=== PATIENT | female | born 1985 | race Caucasian/White ===

== ENCOUNTER 2018-10-05 11:16 | Emergency (ER) | payer MEDICAID | END 2018-10-05 14:14 | disposition home or self-care (01) | LOC: FTE 11:16 | DX: O26.892 Other specified pregnancy related conditions, second trimester (principal); Z3A.28 28 weeks gestation of pregnancy | CPT/HCPCS: 99282; Z7502 ==

== ENCOUNTER 2018-12-19 14:00 | Outpatient (CLI) | payer MEDICAID ==
[2018-12-19] MEDS: LACTATED RINGER'S 1,000 ML IV (14:54)
[2018-12-19] MEDS: TERBUTALINE 1 MG/ML INJ SC (15:30)
[2018-12-19] MEDS: NIFEdipine 10 MG CAP PO (16:52)
[2018-12-19 17:27] LABS: ADD UMIC YES; UR ASCORBIC ACID NEGATIVE (NEGATIVE); UR BACTERIA FEW /HPF (NONE SEEN); UR BILIRUBIN (Dip) NEGATIVE (NEGATIVE); UR BLOOD (Dip) 1+ mg/dL (NEGATIVE); UR CLARITY CLOUDY (CLEAR); UR COLOR YELLOW (YELLOW); UR GLUCOSE (Dip) NEGATIVE (NEGATIVE); UR KETONES (Dip) NEGATIVE (NEGATIVE); UR LEUKOCYTE ESTERASE (Dip) 3+ Leu/ul (NEGATIVE); UR NITRITE (Dip) NEGATIVE (NEGATIVE); UR RBC 2 /HPF (0-5); UR SPECIFIC GRAVITY (Dip) 1.006 (1.003-1.030); UR SQUAMOUS EPITHELIAL CELL MANY /HPF (FEW); UR TOTAL PROTEIN (Dip) NEGATIVE (NEGATIVE); UR UROBILINOGEN (Dip) NEGATIVE (NEGATIVE); UR WBC 14 /HPF (0-5)
== END 2018-12-19 19:52 | disposition home or self-care (01) ==
LOC: OBT 14:00 → L-D 14:01 → OBT 19:52
DX: O26.892 Other specified pregnancy related conditions, second trimester (principal); R10.2 Pelvic and perineal pain; O09.523 Supervision of elderly multigravida, third trimester; Z3A.36 36 weeks gestation of pregnancy
CPT/HCPCS: 36415; 76818; 81001; 96360; 96361

== ENCOUNTER 2018-12-30 07:29 | Inpatient (IN) | payer MEDICAID ==
[2018-12-30] MEDS ORDERED: IBUPROFEN 600 MG TAB PO (08:00)
[2018-12-30] MEDS ORDERED: METHYLERGONOVINE 0.2 MG INJ IM ×2 (08:00→22:30)
[2018-12-30] MEDS ORDERED: CARBOPROST 250 MCG INJ IM ×2 (08:00→22:30)
[2018-12-30] MEDS ORDERED: OXYTOCIN 30 UNITS/LR 500 ML IV ×2 (08:00→22:30)
[2018-12-30] MEDS ORDERED: BUTORPHANOL 2 MG INJ IV (08:00)
[2018-12-30] MEDS ORDERED: LIDOCAINE 1% (MPF) 30 ML INJ INJ (08:00)
[2018-12-30] MEDS ORDERED: MISOPROSTOL 200 MCG TAB PR ×2 (08:00→22:30)
[2018-12-30] MEDS: LACTATED RINGER'S 1,000 ML IV ×3 (08:10→16:48)
[2018-12-30 08:23] LABS: ADD MAN DIFF? NO
[2018-12-30 08:29] LABS: WHITE BLOOD COUNT 8.3 10^3/ul (4.8-10.8)
[2018-12-30 08:29] LABS: BASOPHIL # 0.1 10^3/ul (0.0-0.1); EOSINOPHILS # 0.2 10^3/ul (0.0-0.5); EOSINOPHILS % 2.5 % (0.0-7.0); HEMATOCRIT 41.4 % (37.0-47.0); HEMOGLOBIN 14.1 g/dl (12.0-16.0); LYMPHOCYTES # 2.4 10^3/ul (0.8-2.9); LYMPHOCYTES % 28.4 % (15.0-51.0); MEAN CORPUSCULAR HEMOGLOBIN 30.3 pg (29.0-33.0); MEAN CORPUSCULAR HGB CONC 34.1 g/dl (32.0-37.0); MEAN PLATELET VOLUME 9.7 fl (7.4-10.4); MONOCYTE # 0.7 10^3/ul (0.3-0.9); MONOCYTES % 8.3 % (0.0-11.0); NEUTROPHIL # 4.9 10^3/ul (1.6-7.5); NEUTROPHILS % 58.7 % (39.0-77.0); PLATELET COUNT 203 10^3/UL (140-415); RED BLOOD COUNT 4.65 10^6/ul (4.20-5.40); RED CELL DISTRIBUTION WIDTH 13.2 % (11.5-14.5)
[2018-12-30] MEDS: AMPICILLIN 2 GM/NS (PMX) 100 ML IV (08:39)
[2018-12-30 08:49] LABS: INR 0.93; PROTIME 12.6 Sec (11.9-14.9)
[2018-12-30 08:50] LABS: PARTIAL THROMBOPLASTIN TIME 28.2 Sec (23.0-35.0)
[2018-12-30] MEDS ORDERED: FENTAnyl 2MCG/ML-ROPIV 0.2% 100 ML (09:59)
[2018-12-30] MEDS ORDERED: ONDANSETRON 4 MG INJ IV (10:30)
[2018-12-30] MEDS ORDERED: morphine 2 MG INJ IV ×2 (10:30)
[2018-12-30] MEDS ORDERED: DIPHENHYDRAMINE 50 MG INJ IV (10:30)
[2018-12-30] MEDS ORDERED: KETOROLAC 30 MG INJ IV (10:30)
[2018-12-30] MEDS ORDERED: HYDROmorphONE 0.5 MG/0.5 ML SYG IV ×2 (10:30)
[2018-12-30] MEDS ORDERED: NALBUPHINE HCL (10 MG/1 ML) INJ IV (10:30)
[2018-12-30] MEDS ORDERED: ACETAMINOPHEN 500 MG TAB PO (10:30)
[2018-12-30] MEDS ORDERED: HYDROCODONE/APAP (5/325) TAB PO (10:30)
[2018-12-30] MEDS ORDERED: NALOXONE (0.4 MG/ML) INJ IV (10:30)
[2018-12-30] MEDS ORDERED: FENTAnyl 2MCG/ML-ROPIV 0.2% 100 ML BAG EPI (10:30)
[2018-12-30 11:23] LABS: HEPATITIS B SURFACE ANTIGEN NEGATIVE (NEGATIVE)
[2018-12-30] MEDS ORDERED: AMPICILLIN 1 GM/NS (PMX) 50 ML IV (12:00)
[2018-12-30 15:09] LABS: RAPID PLASMA REAGIN NONREACTIVE (NR)
[2018-12-30] MEDS: OXYTOCIN 30 UNITS/LR 500 ML IV ×2 (18:14→18:53)
[2018-12-30] MEDS ORDERED: ZOLPIDEM 5 MG TAB PO (22:30)
[2018-12-30] MEDS ORDERED: OXYCODONE/ASPIRIN (4.88/325) TAB PO (22:30)
[2018-12-30] MEDS: LANOLIN HPA 1 PKT TOP (23:01)
[2018-12-30] MEDS: WITCH HAZEL/GLYCERIN PAD PR (23:01)
[2018-12-30] MEDS: BENZOCAINE 20% 56 ML SPRAY TOP (23:01)
[2018-12-31] MEDS: IBUPROFEN 600 MG TAB PO ×5 (00:47→23:45)
[2018-12-31 06:45] LABS: ADD MAN DIFF? NO
[2018-12-31 06:49] LABS: BASOPHIL # 0.1 10^3/ul (0.0-0.1); EOSINOPHILS # 0.2 10^3/ul (0.0-0.5); EOSINOPHILS % 2.2 % (0.0-7.0); HEMATOCRIT 39.4 % (37.0-47.0); HEMOGLOBIN 13.2 g/dl (12.0-16.0); LYMPHOCYTES % 29.3 % (15.0-51.0); MEAN CORPUSCULAR HEMOGLOBIN 30.6 pg (29.0-33.0); MEAN CORPUSCULAR HGB CONC 33.5 g/dl (32.0-37.0); MEAN CORPUSCULAR VOLUME 91.2 fl (82.0-101.0); MEAN PLATELET VOLUME 9.8 fl (7.4-10.4); MONOCYTE # 0.8 10^3/ul (0.3-0.9); MONOCYTES % 7.5 % (0.0-11.0); NEUTROPHILS % 58.9 % (39.0-77.0); PLATELET COUNT 168 10^3/UL (140-415); RED BLOOD COUNT 4.32 10^6/ul (4.20-5.40); RED CELL DISTRIBUTION WIDTH 13.4 % (11.5-14.5)
[2018-12-31 06:49] LABS: WHITE BLOOD COUNT 10.2 10^3/ul (4.8-10.8)
[2018-12-31] MEDS: SENNA/DOCUSATE NA (8.6MG/50MG) TAB PO ×2 (09:11→21:44)
[2018-12-31] MEDS: OXYCODONE/ASPIRIN (4.88/325) TAB PO (19:48)
[2019-01-01] MEDS: IBUPROFEN 600 MG TAB PO ×2 (05:30→12:14)
[2019-01-01] MEDS: SENNA/DOCUSATE NA (8.6MG/50MG) TAB PO (08:39)
[2019-01-01] MEDS: DIPHTH/TET/ACEL PERTUSS (ADULT) 0.5 ML VIAL IM* (09:03)
== END 2019-01-01 16:25 | disposition home or self-care (01) | DRG 807 ==
LOC: OBT 07:29 → L-D 07:29 → OBT 07:50 → L-D 07:50 → PP1 20:22
PROVIDERS: Obstetrics & Gynecology
PROC: 10E0XZZ Delivery of Products of Conception, External Approach (ICD-10-PCS; principal; 2018-12-30)
PROC: 0UQGXZZ Repair Vagina, External Approach (ICD-10-PCS; 2018-12-30)
DX: O71.4 Obstetric high vaginal laceration alone (principal); Z37.0 Single live birth; Z3A.38 38 weeks gestation of pregnancy
CPT/HCPCS: 36415; 62322; 85025; 85610; 85730; 86592; 86850; 86900; 86901; 87340